=== PATIENT | male | born 1960 | race Caucasian/White ===

== ENCOUNTER 2018-12-28 17:37 | Emergency (ER) | payer BC, OTHER ==
[2018-12-28 17:47] VITALS: BP 115/71; PULSE 72; TEMP 98.1; BMI 31.3
--- NOTE | 2018-12-28 17:47 | PDOC ---
Rapid Medical Evaluation Time Seen by Provider: 12/28/18 17:43 Medical Evaluation: Allergies Allergy/AdvReac Type Severity Reaction Status Date / Time No Known Allergies Allergy Verified 12/05/11 13:58 12/28/18 17:43 I performed a brief in-person evaluation. 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 Complains of "neck stiffness." Some relief from Advil. No history of prior headaches. Sent by Dr. Lenka Escobar for "[employer] w/u." Pertinent physical exam findings: No focal neurologic deficits. No meningismus. I have ordered the following: Basic labs. Patient will proceed to the ED for further evaluation. Discharge Disposition - Diagnosis Headache - Referrals - Patient Instructions - Post Discharge Activity
[2018-12-28 18:08] LABS: HEMATOCRIT 46.9 % (35.4-49); HEMOGLOBIN 16.4 GM/dL (11.7-16.9); MCH 31.8 pg (25.7-33.7); MEAN CELL VOLUME 90.8 fl (80-96); MEAN PLT VOLUME 7.6 fl (7.5-11.1); PLATELET COUNT 229 K/MM3 (134-434); RBC 5.16 M/mm3 (4.00-5.60); RDW 13.3 % (11.9-15.9); WHITE BLOOD COUNT 7.6 K/mm3 (4.0-10.0)
[2018-12-28 18:38] LABS: ALK PHOS 98 U/L (45-117); ANION GAP 7 MMOL/L (8-16); BLOOD UREA NITROGEN 22 mg/dL (7-18); CALCIUM 8.7 mg/dL (8.5-10.1); CHLORIDE 106 mmol/L (98-107); CO2 25 mmol/L (21-32); CREATININE 0.8 mg/dL (0.55-1.3); GLUCOSE,RANDOM 87 mg/dL (74-106); POTASSIUM 4.4 mmol/L (3.5-5.1); SGOT/AST 23 U/L (15-37); SGPT/ALT 31 U/L (13-61); SODIUM 138 mmol/L (136-145); TOT PROT 7.5 g/dl (6.4-8.2)
[2018-12-28 19:11] LABS: URINE APPEARANCE CLEAR; URINE BILIRUBIN NEGATIVE (<2.0 mg/dL); URINE COLOR LTYELLOW; URINE GLUCOSE (UA) NEGATIVE (NEGATIVE); URINE KETONE NEGATIVE (NEGATIVE); URINE LEUK ESTERASE NEGATIVE (NEGATIVE); URINE NITRITE NEGATIVE (NEGATIVE); URINE PROTEIN NEGATIVE (NEGATIVE); URINE UROBILINOGEN NEGATIVE mg/dL (0.2-1.0)
[2018-12-28 19:15] LABS: URINE MUCUS RARE
--- NOTE | 2018-12-28 19:26 | PDOC ---
History of Present Illness - General Chief Complaint: Headache Stated Complaint: HEADACK Time Seen by Provider: 12/28/18 17:43 History Source: Patient Exam Limitations: No Limitations - History of Present Illness Initial Comments: 12/28/18 20:14 58 year old man with a history of bilateral pterygium, ?Brugada syndrome? positive family history of Brugada syndrome who presents with acute sudden onset generalized headache 5 days ago at 1310 on 12/23/18 w/ subsequent episode 1x of nbnb emesis after onset and with headache constant since onset associated with intermittent nausea and neck soreness/stiffness. Patient denies fever, chest pain, shortness of breath, changes in vision, changes in hearing, dizziness, lightheadedness or loss of consciousness. The patient has taken advil for the headache intermittently over the past 5 days with moderate relief. The patient went to PCP Luz hernandez who was concerned by story and advised patient come to ED. Patient denies numbness tingling in the hands or feet, muscle weakness, facial droop, slurring of words or any other symptoms. He has no other complaints at bedside. FHx: sister with sudden cardiac 2/2 brugada syndrome 12/28/18 20:53 Past History - Past Medical History Allergies/Adverse Reactions: Allergies Allergy/AdvReac Type Severity Reaction Status Date / Time No Known Allergies Allergy Verified 12/28/18 17:44 Home Medications: Ambulatory Orders NK [No Known Home Medication] 12/28/18 Anemia: No Asthma: No Cancer: No Cardiac Disorders: No CVA: No COPD: No CHF: No Dementia: No Diabetes: No GI Disorders: No Disorders: No HTN: No Hypercholesterolemia: Yes Liver Disease: No Seizures: No Thyroid Disease: No - Surgical History Abdominal Surgery: No Appendectomy: No Cardiac Surgery: No Cholecystectomy: No Lung Surgery: No Neurologic Surgery: No Orthopedic Surgery: No - Suicide/Smoking/Psychosocial Hx Smoking History: Never smoked Have you smoked in the past 12 months: No Hx Alcohol Use: No Drug/Substance Use Hx: No Substance Use Type: None Hx Substance Use Treatment: No Review of Systems - Review of Systems Able to Perform ROS?: Yes Is the patient limited [place] proficient: No Constitutional: No: Chills, Diaphoresis, Fever HEENTM: No: Tearing, Tinnitus Respiratory: No: Cough, Orthopnea, Shortness of Breath Cardiac (ROS): No: Chest Pain, Lightheadedness, Palpitations ABD/GI: No: Constipated, Diarrhea, Nausea, Vomiting : No: Burning, Dysuria, Hematuria Neurological: No: Headache, Numbness, Tingling *Physical Exam - Vital Signs Last Vital Signs Temp Pulse Resp BP Pulse Ox 98.1 F 72 18 115/71 95 12/28/18 17:45 12/28/18 17:45 12/28/18 17:45 12/28/18 17:45 12/28/18 17:45 - Physical Exam Comments: 12/28/18 20:22 GENERAL: Awake, alert, and fully oriented, in no acute distress HEAD: No signs of trauma, normocephalic, atraumatic EYES: EOMI, sclera anicteric, conjunctiva reddened, baseline 2/2 pterygium ENT:oropharynx clear without exudates. Moist mucosa NECK: Normal ROM, supple, no c spine tenderness LUNGS: No distress, speaks full sentences, clear to auscultation bilaterally HEART: Regular rate and rhythm, normal S1 and S2, no murmurs, rubs or gallops, peripheral pulses normal and equal bilaterally. ABDOMEN: Soft, nontender, normoactive bowel sounds. No guarding, no rebound. No masses EXTREMITIES : Normal inspection, Normal range of motion, no edema. No clubbing or cyanosis. NEUROLOGICAL: Cranial nerves II through XII grossly intact. Normal speech, normal gait no focal sensorimotor deficits SKIN: Warm, Dry, normal turgor, no rashes or lesions noted Moderate Sedation - Procedure Monitoring Vital Signs: Procedure Monitoring Vital Signs Temperature 98.1 F 12/28/18 17:45 Pulse Rate 72 12/28/18 17:45 Respiratory Rate 18 12/28/18 17:45 Blood Pressure 115/71 12/28/18 17:45 O2 Sat by Pulse Oximetry (%) 95 12/28/18 17:45 ED Treatment Course - LABORATORY CBC & Chemistry Diagram: 12/28/18 17:53 12/28/18 17:53 - ADDITIONAL ORDERS Additional order review: Laboratory Results 12/28/18 12/28/18 18:20 17:53 Sodium 138 Potassium 4.4 Chloride 106 Carbon Dioxide 25 Anion Gap 7 L BUN 22 H Creatinine 0.8 Creat Clearance w eGFR > 60 Random Glucose 87 Calcium 8.7 Total Bilirubin 1.0 AST 23 ALT 31 Alkaline Phosphatase 98 Total Protein 7.5 Albumin 4.0 Urine Color Ltyellow Urine Appearance Clear Urine pH 5.0 Ur Specific [place] 1.023 Urine Protein Negative Urine Glucose (UA) Negative Urine Ketones Negative Urine Blood 1+ H Urine Nitrite Negative Urine Bilirubin Negative Urine Urobilinogen Negative Ur Leukocyte Esterase Negative Urine WBC (Auto) 1 Urine RBC (Auto) 1 Urine Mucus Rare 12/28/18 17:53 RBC 5.16 MCV 90.8 MCHC 35.0 RDW 13.3 MPV 7.6 Medical Decision Making - Medical Decision Making 12/28/18 20:19 58 year old man with a history of bilateral pterygium, ? Brugada syndrome? positive family history of Brugada syndrome who presents with acute sudden onset generalized headache 5 days ago w/ one episode of nbnb emesis after onset and with headache constant since onset associated with intermittent nausea and neck soreness/stiffness. Patient denies fever, chest pain, shortness of breath, changes in vision, changes in hearing, dizziness, lightheadedness or loss of consciousness. The patient has taken advil for the headache intermittently over the past 5 days with moderate relief. The patient went to PCP Luz hernandez who was concerned by story and advised patient come to ED. ED Course: consider subarrachnoid hemorrahage/intracranial bleed vs anuerysm vs mass r/o acs vs giant cell arteritis r/o carotid dissection less likely meningitis as patient afebrile, nontoxic, non septic cbc, cmp, cardiac profile, ekg, esr, brain CTA, CXR, zofran and tylenol for nausea/headache 12/28/18 23:49 EKG: sinus tachycardia at 100bpm, prolonged QTc 521, *DC/Admit/Observation/Transfer Diagnosis at time of Disposition: Headache Qualifiers: Headache type: unspecified Headache chronicity pattern: unspecified pattern - Discharge Dispostion Disposition: HOME Condition at time of disposition: Stable Decision to Admit order: No - Referrals Referrals: Oli Escobar MD [Primary Care Provider] - Jeffery Buckley MD [Staff Physician] - Pradeep Barboza MD [Staff Physician] - - Patient Instructions Printed Discharge Instructions: DI for Post-Spinal Puncture Headache, DI for Headache Additional Instructions: You were seen in the ED for complaints of headache. In the ED you were evaluated with labwork and imaging. Your results were unremarkable. There does not appear to be an acute need for immediate hospitalization. You are advised to follow up with your Primary Care Physician within 1 week. You were given a referral to ENT Specialist and Neurology, please follow up within 1 week. Please take over the counter Tylenol and motrin for pain relief. Return to the ED immediately if you experience worsening headache, changes in vision or hearing, loss of consciousness, fevers, chest pain, palpitations, worsening neck stiffness, numbness or tingling in the arms or legs. - Post Discharge Activity
[2018-12-28] MEDS ORDERED: ACETAMINOPHEN 1000 MG/100 ML VIAL (NON FORMULARY) IVPB ONE (19:42)
--- NOTE | 2018-12-28 19:47 | PDOC ---
Attending Attestation - [facility] HPI: 12/28/18 19:56 The patient is a 58 year old male, with no significant PMH, who presents to the emergency department with 5 days of constant generalized headache. 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 The patient describes the headache as a heaviness sensation. He denies any radiating pain. The patient states since that time he has felt lethargic, neck stiffness and intermittent nausea. The patient reports one episode of non bloody non bilious emesis on Monday when he first experienced the headache. The patient states he has taken Advil for the headache with minimal relief. The patient denies history of headaches. Denies any recent travel or sick contacts. The patient denies chest pain, shortness of breath, and dizziness. Denies fever, chills, diarrhea and constipation. Denies dysuria, frequency, urgency and hematuria. Allergies: NKA Documentation prepared by Franko Hanna, acting as site medical director for Nette Argueta MD. - Physicial Exam PE: 12/28/18 21:52 GENERAL: Awake, alert, and fully oriented, in no acute distress HEAD: No signs of trauma EYES: PERRLA, EOMI, sclera anicteric, conjunctiva clear ENT: Auricles normal inspection, hearing grossly normal, nares patent, oropharynx clear without exudates. Moist mucosa NECK: Normal ROM, supple, no lymphadenopathy, JVD, or masses. No neck stiffness. No spinal tenderness. LUNGS: Breath sounds equal, clear to auscultation bilaterally. No wheezes, and no crackles HEART: Regular rate and rhythm, normal S1 and S2, no murmurs, rubs or gallops ABDOMEN: Soft, nontender, normoactive bowel sounds. No guarding, no rebound. No masses. No flank tenderness. EXTREMITIES: Normal range of motion, no edema. No clubbing or cyanosis. No cords, erythema, or tenderness NEUROLOGICAL: Cranial nerves II through XII grossly intact. Normal speech, normal gait. Reflexes 2/2 equal throughout. Strength 5/5 equal throughout out. Moving all extremities. SKIN: Warm, Dry, normal turgor, no rashes or lesions noted. <Franko Hanna - Last Filed: 12/28/18 21:55> - Resident Resident Name: Lorena Alberto - ED Attending Attestation I have performed the following: I have examined & evaluated the patient, The case was reviewed & discussed with the resident, I agree w/resident's findings & plan - Medical Decision Making 12/30/18 03:42 Pt had LP in the ER and we ruled out xanthochronia or infection. Pt asked to follow with cardiology and cardio EP, as he has a questionable hx of brugada syndrome, and he lost a sister to Brugada. Todays EKG shows no brugada <Nette Argueta - Last Filed: 12/30/18 03:43> Procedures - Lumbar Puncture Indication: Subarachnoid Hemmorhage (possible bleed on Monday at 1:10PM when he felt the worst AL of his life; looking for xanthochromia) CT Scan: Yes Betadine Prep: Yes Position: Right lateral decubitus Site: [id number] Local Anesthesia: 1% Lidocaine with epi Lumbar Puncture Kit: Adult Opening Pressure(mmHg): 23 Closing Pressure(mmHg): not done Traumatic Tap: No Clear Fluid: Yes Complications: No <Nette Argueta - Last Filed: 12/30/18 03:43>
[2018-12-28] MEDS ORDERED: ACETAMINOPHEN INJECTION 100 ML IVPB ONE (19:55)
[2018-12-28] MEDS ORDERED: ONDANSETRON 4 MG/2 ML VIAL IVPUSH ONE (20:07)
[2018-12-28] MEDS ORDERED: ONDANSETRON 4 MG/2 ML VIAL ONE (20:32)
[2018-12-28 20:39] LABS: INR 0.97 (0.83-1.09); PROTHROMBIN TIME (PATIENT) 11.4 SEC (9.7-13.0)
[2018-12-28 20:42] LABS: ACTIVATED PTT 30.5 SECONDS (25.2-36.5)
[2018-12-28 22:46] LABS: CSF APPEARANCE CLEAR; CSF COLOR COLORLESS
[2018-12-28 23:12] LABS: BF GLUCOSE (CSF ONLY) 47 mg/dL (40-70); CSF WBC 1
--- NOTE | 2018-12-29 12:59 | EKG ---
Test Reason : Blood Pressure : / mmHG Vent. Rate : 057 BPM Atrial Rate : 057 BPM P-R Int : 172 ms QRS Dur : 090 ms QT Int : 410 ms P-R-T Axes : 060 -35 027 degrees QTc Int : 399 ms SINUS BRADYCARDIA LEFT AXIS DEVIATION LOW VOLTAGE QRS ABNORMAL ECG Confirmed by JOANN MORRISSEY MD ([id number]) on 12/29/2018 12:58:33 PM Referred By: Confirmed By:JOANN MORRISSEY MD
--- NOTE | 2018-12-29 13:01 | EKG ---
Test Reason : Blood Pressure : / mmHG Vent. Rate : 100 BPM Atrial Rate : 060 BPM P-R Int : 170 ms QRS Dur : 090 ms QT Int : 404 ms P-R-T Axes : 062 -42 036 degrees QTc Int : 521 ms SINUS RHYTHM LEFT AXIS DEVIATION PROLONGED QT ABNORMAL ECG WHEN COMPARED WITH ECG OF 01-JAN-2009 19:12, PREMATURE VENTRICULAR COMPLEXES ARE NOW PRESENT QT HAS LENGTHENED Confirmed by GHANSHYAM LOTT, JOANN ([id number]) on 12/29/2018 1:00:50 PM Referred By: Confirmed By:JOANN MORRISSEY MD
== END 2018-12-29 01:43 | disposition home or self-care (01) ==
LOC: JER 17:37
PROC: 3E033GC Introduction of Other Therapeutic Substance into Peripheral Vein, Percutaneous Approach (ICD-10-PCS; principal; 2018-12-28)
DX: R51 Headache (principal); I49.8 Other specified cardiac arrhythmias
CPT/HCPCS: 36415; 70496-TC; 71046-TC-FY; 80053; 81003; 81015; 82550; 82553; 82945; 84157; 84484; 85027; 85610; 85651; 85730; 86592; 86617; 86663; 86664; 86665; 86777; 86788; 86789; 86850; 86900; 86901; 87070; 87205; 87476; 87529; 87798; 87899; 93005; 93010; 99283-25; J0131